=== PATIENT | female | born 2000 | race American Indian/Alaskan Native ===

== ENCOUNTER 2022-05-16 11:10 | Emergency (ER) | payer SELFPAY ==
[2022-05-16] MEDS ORDERED: ONDANSETRON 4 MG/2 ML INJ IV ONE (12:00)
[2022-05-16] MEDS ORDERED: MORPHINE 4 MG/1 ML INJ IV ONE ×2 (12:00→14:54)
[2022-05-16] MEDS ORDERED: LET TOPICAL (LIDOCAINE/EPINEPHRINE/TETRACAINE) 3 ML TP ONE (12:01)
[2022-05-16] MEDS ORDERED: SODIUM CHLORIDE 0.9% 1000 ML 1,000 ML IV ONE (12:48)
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
[2022-05-16 13:36] LABS: HCG Qualitative,Urine Negative (Negative)
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
[2022-05-16] MEDS ORDERED: KETOROLAC 30 MG/1 ML INJ IV ONE (14:54)
[2022-05-16] MEDS ORDERED: LIDOCAINE 1%/EPINEPHRINE 1:100,000 VIAL (20 ML) INFILTRATI SCH (15:30)
[2022-05-16] MEDS ORDERED: LIDOCAINE (1%) 10 MG/1 ML VIAL 20 ML MDV INFILTRATI ONE (15:34)
[2022-05-16] MEDS ORDERED: LIDOCAINE 2%/EPINEPHRINE 1:100,000 VIAL (20 ML) INFILTRATI SCH (16:00)
[2022-05-16] MEDS ORDERED: BACITRACIN ZINC OINT 28.4 GM TP STA (17:09)
[2022-05-16 18:56] VITALS: BP 128/81
== END 2022-05-16 19:12 | disposition home or self-care (01) ==
LOC: ED 11:10
DX: S01.81XA Laceration without foreign body of other part of head, initial encounter (principal); H02.846 Edema of left eye, unspecified eyelid; Z79.899 Other long term (current) drug therapy; Y04.8XXA Assault by other bodily force, initial encounter; Y93.89 Activity, other specified; Y92.89 Other specified places as the place of occurrence of the external cause; Y99.8 Other external cause status
CPT/HCPCS: 12013; 70450; 70486; 72125; 81025; 96361; 96374; 96375; 96376; 99284; J1885; J2270; J2405; J7030